=== PATIENT | female | born 1945 | race Caucasian/White ===

== ENCOUNTER → 2017-02-24 | Outpatient (CLI) | payer MEDICARE | END | disposition home or self-care (01) | LOC: RAD 13:25 | DX: R07.81 Pleurodynia (principal) ==

== ENCOUNTER 2017-06-24 11:24 | Emergency (ER) | payer MEDICARE ==
[~2017-06-24] VITALS: Ht 152.4 cm; Wt 83.9 kg
== END 2017-06-24 13:31 | disposition home or self-care (01) ==
LOC: ED 11:24
DX: S80.01XA Contusion of right knee, initial encounter (principal); R03.0 Elevated blood-pressure reading, without diagnosis of hypertension; F17.200 Nicotine dependence, unspecified, uncomplicated; Z90.49 Acquired absence of other specified parts of digestive tract; Z98.890 Other specified postprocedural states; Z88.5 Allergy status to narcotic agent; Z88.8 Allergy status to other drugs, medicaments and biological substances; W01.0XXA Fall on same level from slipping, tripping and stumbling without subsequent striking against object, initial encounter; Y93.89 Activity, other specified; Y92.89 Other specified places as the place of occurrence of the external cause; Y99.9 Unspecified external cause status

== ENCOUNTER 2018-04-03 16:38 | Emergency (ER) | payer MEDICARE ==
[~2018-04-03] VITALS: Wt 86.2 kg
[2018-04-03] MEDS ORDERED: LEVOTHYROXINE50 MCG PO (16:56)
[2018-04-03] MEDS ORDERED: TRIAMTERENE & H1 CAP PO (16:57)
[2018-04-03] MEDS ORDERED: CYTOMEL5 MCG PO (16:57)
[2018-04-03] MEDS ORDERED: LEVOXYL137 MCG PO (16:58)
[2018-04-03 17:14] LABS: BASO % 0.3 % (0.0-1.0); EOS # 0.1 10*3/uL (0.0-0.4); EOS % 1.3 % (1.0-4.0); HEMATOCRIT 45.3 % (37.0-47.0); HEMOGLOBIN 15.1 g/dl (12.0-16.0); LYMPH # 1.6 10*3/uL (1.3-4.4); LYMPH % 20.6 % (27.0-41.0); MEAN CELL VOLUME 94.8 fl (81.0-99.0); MEAN CORPUSCULAR HGB 31.6 pg (27.0-31.0); MEAN CORPUSCULAR HGB CONC 33.3 g/dl (33.0-37.0); MEAN PLATELET VOLUME 11.1 fl (9.6-12.3); MONO # 0.7 10*3/uL (0.1-1.0); MONO % 8.6 % (3.0-9.0); NEUT # 5.2 10*3/uL (2.3-7.9); NEUT % 68.8 % (47.0-73.0); PLATELET COUNT AUTOMATED 181 10*3/uL (130-400); RED BLOOD COUNT 4.78 10*6/uL (4.10-5.10); RED CELL DISTRI WIDTH 13.9 % (0-14.5); WHITE BLOOD COUNT 7.5 10*3/uL (4.8-10.8)
[2018-04-03 17:30] LABS: ALBUMIN 3.7 gm/dl (3.1-4.5); ALKALINE PHOSPHATASE 106 U/L (45-117); BUN 21 mg/dl (7-24); CHLORIDE 101 mmol/L (98-107); CREATININE 0.81 mg/dL (0.55-1.02); POTASSIUM 3.8 mmol/L (3.5-5.1); SGOT/AST 24 IU/L (3-35); SGPT/ALT 22 U/L (12-78); SODIUM 138 mmol/L (136-145); TOTAL PROTEIN 7.3 gm/dL (6.4-8.2)
== END 2018-04-03 19:01 | disposition home or self-care (01) ==
LOC: ED 16:38
PROVIDERS: Emergency Medicine
DX: R20.0 Anesthesia of skin (principal); Z88.6 Allergy status to analgesic agent; Z88.8 Allergy status to other drugs, medicaments and biological substances; Z90.49 Acquired absence of other specified parts of digestive tract

== ENCOUNTER → 2018-04-11 | Outpatient (CLI) | payer MEDICARE ==
[~2018-04-11] MED LIST: CYTOMEL5 MCG PO; LEVOTHYROXINE50 MCG PO; LEVOXYL137 MCG PO; TRIAMTERENE & H1 CAP PO
--- NOTE | ~2018-04-11 | HM ---
[place], [place] HOLTER MONITOR REPORT [id number] UNIT #: [id number] ROOM: DOCTOR: KAMRYN SANCHEZ MD BIRTHDATE: [birth year] DOS: 04/13/2018 A 48-HOUR HOLTER MONITOR REPORT This study was recorded from April 11 through the 04/13/2018. The recording was analyzed and this dictation obtained on 04/13/2018. INDICATIONS: History of stroke. PROCEDURE: The patient was monitored for 48 hours utilizing a Holter device. FINDINGS: The basic rhythm was normal sinus. Average heart rate was 78, sinus rate varied from 58 to 120 beats per minute. The patient had very rare premature ventricular contractions. There was no ventricular tachycardia seen. The patient had occasional premature atrial contractions including a single 5-beat run of supraventricular tachycardia recorded at 7:30 p.m. Maximum heart rate during SVT was 135 beats per minute. The patient recorded no symptoms at that time. The patient returned a diary with one entry. She noted little pain in her left upper chest lasting about a minute. She was in sinus rhythm during that event. IMPRESSION: 1. Normal sinus rhythm with rare premature ventricular contractions and occasional premature atrial contractions. 2. One asymptomatic 5-beat run of supraventricular tachycardia recorded. No atrial fibrillation seen. No prolonged pauses present. KAMRYN SANCHEZ MD CM:HOLTER:HOLTER MONITOR REPORT [id number] KAMRYN SANCHEZ MD
== END | disposition home or self-care (01) ==
LOC: CARD 10:00
DX: I48.0 Paroxysmal atrial fibrillation (principal); I47.1 Supraventricular tachycardia

== ENCOUNTER → 2020-01-03 | Outpatient (CLI) | payer MEDICARE ==
[2020-01-03 09:31] LABS: THYROXINE (T4) TOTAL 14.9 ug/dl (4.8-13.9)
[2020-01-03 09:37] LABS: FREE T4 1.66 ng/dl (0.76-1.46); THYROID STIM HORMONE (HS) 6.68 uIU/ml (0.358-4.75)
== END | disposition home or self-care (01) ==
LOC: LAB 08:27
PROVIDERS: Internal Medicine Endocrinology, Diabetes & Metabolism
DX: E03.9 Hypothyroidism, unspecified (principal)

== ENCOUNTER → 2021-08-02 | Outpatient (CLI) | payer MEDICARE ==
[2021-08-02 13:52] LABS: BUN 22 mg/dl (7-24); CHLORIDE 106 mmol/L (98-107); CREATININE 0.96 mg/dL (0.55-1.02); POTASSIUM 3.9 mmol/L (3.5-5.1); SODIUM 139 mmol/L (136-145)
== END | disposition home or self-care (01) ==
LOC: LAB 13:15
PROVIDERS: ATTEND Student in an Organized Health Care Education/Training Program
DX: E87.6 Hypokalemia (principal)

== ENCOUNTER → 2023-07-04 | Outpatient (CLI) | payer MEDICARE ==
[2023-07-04 16:11] LABS: BASO % 0.4 % (0.0-1.0); EOS # 0.2 10*3/uL (0.0-0.4); EOS % 2.3 % (1.0-4.0); HEMATOCRIT 43.4 % (37.0-47.0); LYMPH % 12.7 % (27.0-41.0); MEAN CELL VOLUME 93.1 fl (81.0-99.0); MEAN CORPUSCULAR HGB 30.3 pg (27.0-31.0); MEAN CORPUSCULAR HGB CONC 32.5 g/dl (33.0-37.0); MEAN PLATELET VOLUME 11.1 fl (9.6-12.3); MONO # 0.5 10*3/uL (0.1-1.0); MONO % 6.6 % (3.0-9.0); NEUT # 6.3 10*3/uL (2.3-7.9); NEUT % 77.6 % (47.0-73.0); PLATELET COUNT AUTOMATED 187 10*3/uL (130-400); RED BLOOD COUNT 4.66 10*6/uL (4.10-5.10); RED CELL DISTRI WIDTH 13.6 % (0-14.5); WHITE BLOOD COUNT 8.1 10*3/uL (4.8-10.8)
[2023-07-04 16:21] LABS: BILIRUBIN Negative (Negative); BLOOD Negative (Negative); CLARITY Cloudy (Clear); COLOR Yellow (Yellow); GLUCOSE Negative (Negative); KETONE Negative (Negative); LEUKO ESTERASE Negative (Negative); NITRITE Negative (Negative); PH 6.5 (4.5-8.0)
[2023-07-04 16:46] LABS: ALKALINE PHOSPHATASE 106 U/L (46-116); BUN 25 mg/dl (9-23); CHLORIDE 106 mmol/L (98-107); POTASSIUM 3.6 mmol/L (3.4-5.1); SGPT/ALT 10 U/L (10-49); TOTAL PROTEIN 6.6 gm/dL (6.0-8.0)
[2023-07-04 17:01] LABS: BACTERIA TRACE; RBC 0-2 rbc/hpf (0-2); WBC 0-2 wbc/hpf (0-5)
== END | disposition home or self-care (01) ==
LOC: LAB 15:24
PROVIDERS: ATTEND Orthopaedic Surgery
DX: Z01.818 Encounter for other preprocedural examination (principal); M17.12 Unilateral primary osteoarthritis, left knee; E78.5 Hyperlipidemia, unspecified; E03.9 Hypothyroidism, unspecified; R73.9 Hyperglycemia, unspecified; M79.609 Pain in unspecified limb; Z79.899 Other long term (current) drug therapy

== ENCOUNTER → 2023-07-13 | Outpatient (CLI) | payer MEDICARE ==
[~2023-07-13] MED LIST changes: +24 HOUR ALLER15.8 ML NAS; +ALLEGRA ALLERGY60 M2 PO; +ASPIRIN81 M1 PO; +CRESTOR5 M1 PO; -LEVOXYL137 MCG PO; +LEVOXYL150 MCG PO; +PROTONIX40 MG PO; +WELLBUTRIN PO
== END | disposition home or self-care (01) ==
LOC: CARD 00:01
PROVIDERS: ATTEND Internal Medicine Cardiovascular Disease
DX: Z01.818 Encounter for other preprocedural examination (principal); R53.81 Other malaise; R07.9 Chest pain, unspecified